=== PATIENT | male | born 1950 | race Caucasian/White ===

== ENCOUNTER 2020-02-06 14:36 | Outpatient (CLI) | payer OTHER ==
--- NOTE | 2020-02-06 17:24 | XRAY Report ---
PROCEDURE: Lumbar Spine 2 View INDICATIONS: LOW BACK PAIN TECHNIQUE: 3 views of the lumbar spine were acquired. COMPARISON: None. FINDINGS: Bones: 35 [id number] vertebrae are present. There is trace retrolisthesis of L1 on L2, L2 on L 3, L3 on L4. There is moderate to severe disc space narrowing at L4-5, L5-S1, mild to moderate throug hout the remainder of the lumbar spine. Severe foraminal narrowing is noted at L5-S1, moderate to sev ere at L4-5. Minimal nonbridging anterior osteophytes are present. Multilevel facet hypertrophy is pr esent. No vertebral body compression fractures. No suspicious bony lesions. Soft tissues: Overlying bowel gas pattern is normal. No suspicious soft tissue calcifications. IMPRESSION: Degenerative changes most severe at L5-S1 as above. Reviewed by: Winter Spaulding MD on 02/06/2020 5:22 PM PDT Approved by: Winter Spaulding MD on 02/06/2020 5:22 PM PDT Station ID: [id number]
== END 2020-02-06 14:37 | disposition home or self-care (01) ==
LOC: DI.S 14:36
PROVIDERS: ATTEND Registered Nurse
DX: M51.37 Other intervertebral disc degeneration, lumbosacral region (principal); M48.07 Spinal stenosis, lumbosacral region
CPT/HCPCS: 72100

== ENCOUNTER 2022-09-30 08:00 | Outpatient (CLI) | payer OTHER | END 2022-09-30 23:59 | disposition home or self-care (01) | LOC: LAB 08:00 | PROVIDERS: ATTEND Nurse Practitioner | DX: L72.3 Sebaceous cyst (principal) | CPT/HCPCS: 87070; 87077; 87181; 87205 ==

== ENCOUNTER 2023-01-09 14:17 | Emergency (ER) | payer OTHER ==
--- NOTE | 2023-01-09 14:41 | ED Physician Documentation ---
PD HPI CHEST PAIN - Stated complaint Stated Complaint: HEART PALPITATIONS - History obtained from History obtained from: Patient - History of Present Illness Timing - onset: Last night, Yesterday Timing - onset during: Rest Timing - details: Abrupt onset (episode yesterday and thena gain earlier today of irregular feeling heart rhythm lasting about 10-15 minutes, then resolves. He took BP during an episode with SBP about 170, which is unusual for him. He did not note heart rate. history of occasional palpitations. Has not had it feel irregular for th), Now resolved Quality: Aching Location: Left chest Associated symptoms: Palpitations. No: Shortness of air, Nausea, Feeling faint / dizzy, Cough Similar symptoms before: Has not had sx before Recently seen: Not recently seen Review of Systems Constitutional: denies: Fever, Chills Nose: denies: Rhinorrhea / runny nose, Congestion Throat: denies: Sore throat Cardiac: reports: Palpitations. denies: Chest pain / pressure, Pedal edema, Calf pain Respiratory: denies: Dyspnea, Cough PD PAST MEDICAL HISTORY - Past Medical History Cardiovascular: Coronary artery disease (with CAD stents placed 2015 without subsequent anginal symptoms. See Dr. Ochoa at [facility]. ) Respiratory: Sleep apnea GI: GERD Psych: Depression - Past Surgical History Past Surgical History: Yes HEENT: Tonsil/Adenoidectomy - Present Medications Home Medications: Ambulatory Orders Medication Instructions Recorded Confirmed Aspirin [Karen Chewable] 81 mg PO DAILY 07/28/14 07/28/14 Azithromycin 250 mg PO DAILY #4 tablet 07/28/14 Benzonatate [Tessalon] 100 mg PO TID PRN #20 capsule 07/28/14 Calcium Carb, Citrate/Vit D3 1 each PO DAILY 07/28/14 07/28/14 [Calcium + D3 ER Tablet] Methylphenidate HCl 20 mg PO DAILY 07/28/14 07/28/14 [Methylphenidate Sr] Omeprazole [Prilosec] 20 mg PO DAILY 07/28/14 07/28/14 PARoxetine [Paxil] 40 mg PO DAILY 07/28/14 07/28/14 Primidone 150 mg PO BID 07/28/14 07/28/14 guaiFENesin/CODEINE [Robitussin AC] 5 - 10 ml PO Q6H PRN #120 ml 07/28/14 - Allergies Allergies/Adverse Reactions: Allergies Allergy/AdvReac Type Severity Reaction Status Date / Time No Known Drug Allergies Allergy Verified 01/09/23 14:47 - Social History Does the pt smoke?: No Smoking Status: Never smoker Does the pt drink ETOH?: Yes ETOH Use: Wine (infrequnet glass of wine. No regular alcohol. ) Does the pt have substance abuse?: No - Immunizations Immunizations are current?: Yes - POLST Patient has POLST: Yes PD ED PE NORMAL - Vitals Vital signs reviewed: Yes - General General: Alert and oriented X 3, No acute distress, Well developed/nourished - HEENT HEENT: Atraumatic, Pharynx benign - Neck Neck: Supple, no meningeal sign, No adenopathy - Cardiac Cardiac: RRR, Other (minimal murmur left parasternal chest. ) - Respiratory Respiratory: No respiratory distress, Clear bilaterally - Abdomen Abdomen: Normal bowel sounds, Soft, Non tender, Non distended - Back Back: No CVA TTP - Derm Derm: Normal color, Warm and dry - Extremities Extremities: No edema, No calf tenderness / cord Results - Vitals Vitals: Vital Signs - 24 hr 01/09/23 01/09/23 14:33 15:29 Temperature 36.7 C Heart Rate 75 61 Respiratory 16 16 Rate Blood Pressure 144/85 H 121/63 O2 Saturation 96 98 Oxygen O2 Source Room air - EKG (time done) 14:31 EKG releavant findings:: EKG personally interpreted by author of this note. Relevant findings are: Rate: Rate (enter#) (72) Rhythm: NSR [place]: Normal Intervals: Normal [place] QRS: Normal Ischemia: Normal ST segments. No: ST elevation c/w ischemia, ST depression - Labs Labs: Laboratory Tests 01/09/23 01/09/23 01/09/23 15:30 15:30 15:30 WBC 7.0 RBC 4.51 L Hgb 14.1 Hct 41.7 L MCV 92.5 MCH 31.3 H MCHC 33.8 RDW 12.4 Plt Count 207 MPV 9.8 Neut # (Auto) 4.4 Lymph # (Auto) 1.4 L Logan # (Auto) 0.8 Eos # (Auto) 0.4 Baso # (Auto) 0.0 Absolute Nucleated RBC 0.00 Nucleated RBC % 0.0 Sodium 137 Potassium 4.0 Chloride 105 Carbon Dioxide 28 Anion Gap 4.0 L BUN 15 Creatinine 0.8 Estimated GFR (MDRD) 95 Glucose 103 H Calcium 8.7 Magnesium 1.7 Total Bilirubin 0.5 AST 25 ALT 34 Alkaline Phosphatase 89 Troponin I High Sens < 2.3 L Total Protein 6.9 Albumin 3.7 Globulin 3.2 Albumin/Globulin Ratio 1.2 Lipase 33 TSH 01/09/23 15:30 WBC RBC Hgb Hct MCV MCH MCHC RDW Plt Count MPV Neut # (Auto) Lymph # (Auto) Logan # (Auto) Eos # (Auto) Baso # (Auto) Absolute Nucleated RBC Nucleated RBC % Sodium Potassium Chloride Carbon Dioxide Anion Gap BUN Creatinine Estimated GFR (MDRD) Glucose Calcium Magnesium Total Bilirubin AST ALT Alkaline Phosphatase Troponin I High Sens Total Protein Albumin Globulin Albumin/Globulin Ratio Lipase TSH 2.86 PD Medical Decision Making - ED course Complexity details: reviewed results (monitor of course normal here, as luck would have it. Will need extended monitor term to try to capture an event. have him follow up with dr. Ochoa (?) for arranging testing to level he would like.), considered differential (unclear if he had clustered higher amount of PVCs/PACs and it felt irregular. Versus brief self limited atrial fib episodes. Normal montior here. Basic electrolytes are normal, as is TSH. Troponin negative, so not concurrent myocardial injury.), d/w patient Departure - Departure Disposition: 01 Home, Self Care Clinical Impression: Irregular heart rhythm Condition: Stable Record reviewed to determine appropriate education?: Yes Instructions: ED Palpitations Follow-Up: Misty Townsend, MATERIALS TECHNICIAN [Primary Care Provider] - Comments: Your EKG and basic blood tests are normal here. We are whether you had just frequent palpitations (PACs or PVCs) which are benign even if close together. Alternatively that could have been brief episodes of atrial fibrillation which would be more important to distinguish in the long-term. Follow-up with Dr. Ochoa. I cannot find his name on our follow-up list per se so I cannot flag results to him. Call his office on Wednesday and they can request the results sent to them. I presume they will want to redo a heart monitoring such as a Holter or Zio patch to see if we can catch an episode of this to better distinguish. Otherwise remain well-hydrated. Your electrolytes looked good. I would reduce the methylphenidate from the current dose per back to the prior dose. I do not think you need to discontinue it. Return to the ER if a recurrent episode lasting more than half hour or so. Or if its associated with other symptoms such as shortness of breath, lightheadedness, chest pain etc. Discharge Date/Time: 01/09/23 17:10
[2023-01-09 15:35] LABS: BASOPHILS % (AUTO) 0.4 %; EOSINOPHILS # (AUTO) 0.4 10^3/uL (0.0-0.7); EOSINOPHILS % (AUTO) 5.4 %; HCT - HEMATOCRIT 41.7 % (42.0-52.0); HGB - HEMOGLOBIN 14.1 g/dL (14.0-18.0); LYMPHOCYTES # (AUTO) 1.4 10^3/uL (1.5-3.5); LYMPHOCYTES % (AUTO) 19.8 %; MEAN CORPUSCULAR HEMOGLOBIN 31.3 pg (27.0-31.0); MEAN CORPUSCULAR HGB CONC 33.8 g/dL (32.0-36.0); MEAN CORPUSCULAR VOLUME 92.5 fL (80.0-94.0); MEAN PLATELET VOLUME 9.8 fL (7.4-11.4); MONOCYTES # (AUTO) 0.8 10^3/uL (0.0-1.0); MONOCYTES % (AUTO) 11.2 %; NEUTROPHILS # (AUTO) 4.4 10^3/uL (1.5-6.6); NEUTROPHILS % (AUTO) 63.1 %; PLT - PLATELET COUNT 207 10^3/uL (130-450); RED BLOOD COUNT 4.51 10^6/uL (4.70-6.10); RED CELL DISTRIBUTION WIDTH 12.4 % (12.0-15.0)
[2023-01-09 15:52] LABS: ALBUMIN 3.7 g/dL (3.2-5.5); ALBUMIN/GLOBULIN RATIO 1.2 (1.0-2.2); BILIRUBIN,TOTAL 0.5 mg/dL (0.2-1.0); CALCIUM 8.7 mg/dL (8.5-10.3); CREATININE 0.8 mg/dL (0.6-1.2); MAGNESIUM 1.7 mg/dL (1.7-2.8); TOTAL PROTEIN 6.9 g/dL (6.7-8.2)
[2023-01-09 17:09] VITALS: BP 121/63
== END 2023-01-09 17:10 | disposition home or self-care (01) ==
LOC: ED 14:17
DX: I49.9 Cardiac arrhythmia, unspecified (principal)
CPT/HCPCS: 36415; 80053; 83690; 83735; 84443; 84484; 85025; 93005; 99283; 99284